=== PATIENT | female | born 1995 | race Caucasian/White ===

== ENCOUNTER 2018-06-04 21:30 | Emergency (ER) | payer SELFPAY ==
[~2018-06-04] VITALS: Ht 160 cm; Wt 44.2 kg
[2018-06-04 21:42] VITALS: BP 112/75
== END 2018-06-04 22:46 | disposition home or self-care (01) ==
LOC: ED 22:43
DX: L50.9 Urticaria, unspecified (principal)
CPT/HCPCS: 99283; J7512

== ENCOUNTER 2021-04-25 18:37 | Emergency (ER) | payer MEDICAID ==
[~2021-04-25] VITALS: Ht 160 cm; Wt 47.1 kg
--- NOTE | 2021-04-25 19:01 | NUR ---
PT AMBULATORY TO ROOM 26 W/ C/O R LOWER DENTAL PAIN. PT STATES SHE CAN FEEL HER TOOTH IS CRACKED AND IT FEELS LIKE IT GOES DOWN INTO THE NERVE. PT STATES PAIN COMES AND GOES AND THIS TIME PAIN STARTED LAST NOC. PT RESTING ON GURNEY. NADN. MONITORS APPLIED. VSS. NO SWELLING NOTED.
[2021-04-25 19:33] VITALS: BP 107/44
--- NOTE | 2021-04-25 19:33 | NUR ---
PT RESTING ON GURNEY. NADN. CROWELL.
== END 2021-04-25 19:41 | disposition home or self-care (01) ==
LOC: ED 19:15
DX: K08.89 Other specified disorders of teeth and supporting structures (principal)
CPT/HCPCS: 99283